=== PATIENT | female | born 1945 | race Caucasian/White ===

== ENCOUNTER 2022-07-13 15:18 | Emergency (ER) | payer MEDICARE, OTHER ==
[~2022-07-13] VITALS: Ht 152.4 cm; Wt 64.5 kg
[~2022-07-13 15:18] MED LIST: ATOR20TA PO; CALC1TAB PO; CHOL10002 PO; DICL75TA5 PO; FAMO40TA73 PO; HYDR-3965 PO; LEVO88TA2 PO; LOSA50TA3 PO; MULT-620 PO; OMEG1CAP2 PO; SOLI10TA2 PO
[2022-07-13 15:29] VITALS: BP 199/62
== END 2022-07-13 20:52 | disposition left against medical advice (07) ==
LOC: ER 15:19
DX: R41.0 Disorientation, unspecified (principal); Z53.21 Procedure and treatment not carried out due to patient leaving prior to being seen by health care provider